=== PATIENT | female | born 1980 | race Asian ===

== ENCOUNTER 2016-07-16 08:16 | Inpatient (IN) | payer BC ==
[~2016-07-16] VITALS: Ht 160 cm; Wt 75.0 kg
[2016-07-16] VITALS (8 sets, daily range): BP systolic 100–129; BP diastolic 51–63
[2016-07-16 10:07] LABS: EOSINOPHIL (%) 0.4 % (0-5); HEMATOCRIT 36.3 % (36.0-46.0); IMMATURE GRANULOCYTE (%) 0.2 % (0.0-0.7); LYMPHOCYTE COUNT 1.5 K/uL (1.0-2.8); MCH 26.2 PG (29.0-34.0); MCHC 31.4 G/DL (30.0-36.0); MCV 83.4 FL (83-99); MEAN PLAT.VOLUME 10.6 uM^3 (9.5-12.4); MONOCYTE (%) 5.6 % (3-12); MONOCYTE COUNT 0.5 K/uL (0-0.8); NEUTROPHIL (%) 77.7 % (45-76); NEUTROPHIL COUNT 7.3 K/uL (1.8-6.4); PLATELET COUNT 195 K/uL (156-360); RBC DIS.WIDTH-CV 14.9 % (11.8-14.6); RBC DIS.WIDTH-SD 45.8 % (39-53); RED BLOOD COUNT 4.35 M/uL (3.80-5.20); WHITE BLOOD COUNT 9.4 K/uL (4.1-10.2)
[2016-07-16] MEDS ORDERED: PRENATAL TABLE1 EAC3 PO (10:37)
[2016-07-16 12:30] LABS: POINT-OF-CARE METER ID UU14188576
[2016-07-16] MEDS ORDERED: IBUPROFEN800 MG PO (14:46)
[2016-07-16] MEDS ORDERED: PERCOCET 5/31 TABLET PO (14:46)
[2016-07-17] VITALS (7 sets, daily range): BP systolic 83–103; BP diastolic 49–59
[2016-07-17 08:22] LABS: EOSINOPHIL (%) 0.2 % (0-5); IMMATURE GRANULOCYTE (%) 0.2 % (0.0-0.7); LYMPHOCYTE COUNT 1.6 K/uL (1.0-2.8); MCH 26.4 PG (29.0-34.0); MCHC 31.5 G/DL (30.0-36.0); MCV 83.8 FL (83-99); MEAN PLAT.VOLUME 10.4 uM^3 (9.5-12.4); MONOCYTE (%) 6.7 % (3-12); MONOCYTE COUNT 0.9 K/uL (0-0.8); NEUTROPHIL (%) 79.8 % (45-76); NEUTROPHIL COUNT 10.1 K/uL (1.8-6.4); PLATELET COUNT 197 K/uL (156-360); RBC DIS.WIDTH-CV 15.1 % (11.8-14.6); RBC DIS.WIDTH-SD 46.4 % (39-53); RED BLOOD COUNT 3.94 M/uL (3.80-5.20)
[2016-07-17 08:29] LABS: WHITE BLOOD COUNT 12.6 K/uL (4.1-10.2)
[2016-07-18 03:54] VITALS: BP 101/51
[2016-07-18 08:20] VITALS: BP 90/50
[2016-07-18 11:24] VITALS: BP 93/55
[2016-07-18 15:35] VITALS: BP 115/60
[2016-07-18 23:36] VITALS: BP 96/56
[2016-07-19 08:10] VITALS: BP 103/59
[2016-07-19 16:45] VITALS: BP 109/64
[2016-07-19 22:27] VITALS: BP 108/55
[2016-07-20 07:54] VITALS: BP 109/68
[2016-07-20] MEDS ORDERED: BREAST PUMP MC (12:03)
[2016-07-20 15:37] VITALS: BP 119/74
== END 2016-07-20 17:28 | disposition home or self-care (01) | DRG 766 ==
LOC: LDRP-OP → 2WEST 08:17 → LDRP-OP 08-24 10:09
PROVIDERS: Midwife; Obstetrics & Gynecology
PROC: 10D00Z1 Extraction of Products of Conception, Low, Open Approach (ICD-10-PCS; principal; 2016-07-16)
DX: O32.2XX0 Maternal care for transverse and oblique lie, not applicable or unspecified (principal); O24.420 Gestational diabetes mellitus in childbirth, diet controlled; O32.6XX0 Maternal care for compound presentation, not applicable or unspecified; Z3A.38 38 weeks gestation of pregnancy; Z37.0 Single live birth
CPT/HCPCS: 82948; 85025; 86850; 86900; 86901; J0690; J1100; J2274; J2405; J3010; J7120